=== PATIENT | male | born 1935 | race Caucasian/White ===

== ENCOUNTER → 2016-06-12 | Emergency (ER) | payer OTHER ==
[~2016-06-12] MED LIST: OXYMETAZOLINE 30 ML NASAL SPRAY EACHNARE ONE; TDAP ADULT 0.5 ML INJ (BOOSTRIX) IM ONE
[2016-06-12 11:19] VITALS: BP 143/89; PULSE 60; RESP 16; TEMP 98.4; O2SAT 95
--- NOTE | 2016-06-12 13:04 | UCPHY ---
H & P Time Seen by Provider: 06/12/16 12:52 Patient Type: New HPI/ROS: This patient presents with a chief complaint of epistaxis which began after a fall shortly before his arrival in the department he describes a mechanical fall and denies any presyncopal type symptoms. He is aware of multiple abrasions has no serious pain and no difficulty walking. The patient is on Coumadin. His last INR was the 18 of May and it was 2.5. He denies any dental injury. Although he is left upper lip is swollen. He denies any visual difficulties or any neck pain. He denies any loss of consciousness. Smoking Status: Never smoked Physical Exam: This is a well-developed well-nourished male who is no acute distress. He is alert, oriented and lucid he has a normal gait. Superficial abrasions are noted to the palmar surface of both hands. There is no underlying bony tenderness and there is full range of motion of the digits. CMS is intact. An abrasion is noted over the anterior aspect of the left knee without any significant swelling. There is full range of motion of the joint no tenderness. Examination of the face reveals swelling and an abrasion to the upper lip. The gingival surface underlying is intact as are the teeth. There is some mild swelling over the left malar area without tenderness. There is active left side epistaxis. The nose itself is nontender and nonswollen and there is no deformity. Constitutional: Initial Vital Signs Temperature (C) 36.9 C 06/12/16 11:14 Heart Rate 60 06/12/16 11:14 Respiratory Rate 16 06/12/16 11:14 Blood Pressure 143/89 H 06/12/16 11:14 O2 Sat (%) 95 06/12/16 11:14 O2 Delivery Mode Room Air Allergies/Adverse Reactions: No Known Allergies Allergy (Unverified 06/12/16 11:19) Home Medications: Medication Instructions Recorded Clopidogrel 06/12/16 Lisinopril 06/12/16 Metoprolol 06/12/16 SIMVASTATIN 06/12/16 Warfarin Sodium 06/12/16 Medical Decision Making ED Course/Re-evaluation: Afrin nasal spray was sprayed into the nose in hopes that this would control the bleeding. The bleeding did not reoccur and examination of the nose revealed no actual bleeding point. Differential Diagnosis: There is no evidence for fracture in this patient consequently x-rays were not obtained. The abrasions were cleansed and dressed as necessary. His tetanus was updated with a Tdap. He will return if the bleeding reoccurs. - Data Points Medications Given: Discontinued Medications Oxymetazoline HCl (Afrin Nasal [place]) 2 sprays EACHNARE EDNOW ONE Stop: 06/12/16 13:01 Last Admin: 06/12/16 13:05 Dose: 2 sprays Departure - Departure Disposition: Home, Routine, Self-Care Clinical Impression: Anterior epistaxis Facial trauma Qualifiers: Encounter type: initial encounter Qualified Code(s): S09.93XA - Unspecified injury of face, initial encounter Condition: Good Instructions: Nosebleed (ED), Abrasion (ED), Contusion in Adults (ED) Additional Instructions: If the nasal bleeding reoccurs you should return. Use the Afrin nasal spray in your left nostril for the bleeding does recur. Remain in an upright position as much as possible. Do not blow your nose and diffuse knees sneeze 3 year mouth. Keep the abrasions cleaned and return immediately for any suggestion of infection. If you notice spreading redness, swelling, increasing pain and tenderness or estevan pus you should return immediately since these findings frequently indicate infection. It usually takes 3 days from the time of injury for an infection to begin. Referrals: ROMARIO WAYNE [Primary Care Provider] - As per Instructions - PQRS PQRS Measurement: Not applicable
== END | disposition home or self-care (01) ==
LOC: CED 10:41
DX: R04.0 Epistaxis (principal); S09.93XA Unspecified injury of face, initial encounter; S60.511A Abrasion of right hand, initial encounter; S60.512A Abrasion of left hand, initial encounter; S80.212A Abrasion, left knee, initial encounter; W19.XXXA Unspecified fall, initial encounter; Z23 Encounter for immunization
CPT/HCPCS: 90471; 90715; G0463; 99203-PO

== ENCOUNTER 2016-06-14 10:14 | Emergency (ER) | payer OTHER ==
[2016-06-14 10:55] VITALS: BP 126/72; PULSE 63; RESP 16; TEMP 98.4; O2SAT 95
[2016-06-14] MEDS ORDERED: LIDOCAINE HCL 4% TOPICAL SOLN 50ML ONE (11:52)
[2016-06-14 12:25] LABS: % IMMATURE GRANULYOCYTES 0.4 % (0.0-1.1); ABSOLUTE IMMATURE GRANULOCYTES 0.05 10^3/uL (0.00-0.10); ADD DIFF? NO; ADD MORPH? NO; ADD SCAN? NO; ATYPICAL LYMPHOCYTE FLAG 0 (0-99); FRAGMENT RBC FLAG 0 (0-99); HEMOGLOBIN 16.5 g/dL (13.7-17.5); LEFT SHIFT FLG 0 (0-99); LIPEMIA HEMOLYSIS FLAG 90 (0-99); MEAN CELL HEMOGLOBIN 30.4 pg (27.9-34.1); MEAN CELL HEMOGLOBIN CONCENTR. 34.4 g/dL (32.4-36.7); MEAN CELL VOLUME 88.6 fL (81.5-99.8); MEAN PLATELET VOLUME 11.1 fL (8.7-11.7); PLATELET CLUMPS FLAG 20 (0-99); PLATELET COUNT 230 10^3/uL (150-400); RED BLOOD CELL COUNT 5.42 10^6/uL (4.40-6.38); RED CELL DISTRIBUTION WIDTH 13.9 % (11.5-15.2)
[2016-06-14 12:37] LABS: INR 2.85 (0.83-1.16); PROTIME(PATIENT) 29.8 SEC (12.0-15.0)
[2016-06-14 12:38] LABS: APTT 39.8 SEC (23.0-38.0)
--- NOTE | 2016-06-14 12:42 | UCPHY ---
H & P Time Seen by Provider: 06/14/16 11:19 Patient Type: Established HPI/ROS: This patient complains of left sided nose bleed that started at home more than an hour prior to arrival and persists despite his pinching the bridge of his nose. He presented here 2 days ago with a minor fall, facial abrasion nasal trauma and epistaxis to the same side treated by Dr. Whipple with resolution of his epistaxis with Afrin nasal spray at that time. This is the 1st recurrence of the bleed since that time. ROS: No right naris symptoms. He has no headache. No neck pain. No other traumatic symptoms. He denies any lightheadedness. No shortness of breath or other cardiopulmonary symptoms. 7 point ROS is otherwise negative. Past Medical/Surgical History: Atrial fib on Coumadin with most recent INR 2.9 weeks ago. Smoking Status: Never smoked Physical Exam: Physical Exam Vital signs are normal. General: No acute distress HEENT: Atraumatic except for superficial abrasion to the nose with no bony tenderness. Nose: There is mild bleeding from the anterior septum on the left side. There is also a blood clot present. Oropharynx: No blood down the posterior pharynx. Eyes: Pupils equal and react to light. Extraocular motions are intact. Lungs: No respiratory distress. Cardiac: Brisk capillary refill is intact throughout. Skin: No rash or pallor. Neuro: Alert and oriented x3 with no sensorimotor deficits. Constitutional: Initial Vital Signs Temperature (C) 36.9 C 06/14/16 10:51 Heart Rate 63 06/14/16 10:51 Respiratory Rate 16 06/14/16 10:51 Blood Pressure 126/72 H 06/14/16 10:51 O2 Sat (%) 95 06/14/16 10:51 O2 Delivery Mode Room Air Allergies/Adverse Reactions: No Known Allergies Allergy (Unverified 06/12/16 11:19) Home Medications: Medication Instructions Recorded Clopidogrel 06/12/16 Lisinopril 06/12/16 Metoprolol 06/12/16 SIMVASTATIN 06/12/16 Warfarin Sodium 06/12/16 Medical Decision Making Procedures: Anterior epistaxis: After verbal consent I had the patient blow out blood clots. I used a 50 50 mix of lidocaine and epinephrine, Angiocath 20 gauge and 10 mL syringe sprayed his left nostril with this followed by cotton ball soaked in the same. After 15 minutes are removed the cotton ball and had good hemostasis. Patient tolerated this well. There were no complications. ED Course/Re-evaluation: Patient's INR is 2.9. His CBC reveals mild leukocytosis but no anemia. I counseled patient and his daughter regarding anterior epistaxis. - Data Points Laboratory Results: Laboratory Results 06/14/16 12:20 06/14/16 06/14/16 12:20 12:20 WBC 12.73 10^3/uL H 10^3/uL (3.80-9.50) RBC 5.42 10^6/uL 10^6/uL (4.40-6.38) Hgb 16.5 g/dL g/dL (13.7-17.5) Hct 48.0 % % (40.0-51.0) MCV 88.6 fL fL (81.5-99.8) MCH 30.4 pg pg (27.9-34.1) MCHC 34.4 g/dL g/dL (32.4-36.7) RDW 13.9 % % (11.5-15.2) Plt Count 230 10^3/uL 10^3/uL (150-400) MPV 11.1 fL fL (8.7-11.7) Neut % (Auto) 81.0 % H % (39.3-74.2) Lymph % (Auto) 11.7 % L % (15.0-45.0) [place] % (Auto) 6.1 % % (4.5-13.0) Eos % (Auto) 0.5 % L % (0.6-7.6) Baso % (Auto) 0.3 % % (0.3-1.7) Nucleat RBC Rel Count 0.0 % % (0.0-0.2) Absolute Neuts (auto) 10.31 10^3/uL H 10^3/uL (1.70-6.50) Absolute Lymphs (auto) 1.49 10^3/uL 10^3/uL (1.00-3.00) Absolute Monos (auto) 0.78 10^3/uL 10^3/uL (0.30-0.80) Absolute Eos (auto) 0.06 10^3/uL 10^3/uL (0.03-0.40) Absolute Basos (auto) 0.04 10^3/uL 10^3/uL (0.02-0.10) Absolute Nucleated RBC 0.00 10^3/uL 10^3/uL (0-0.01) Immature Gran % 0.4 % % (0.0-1.1) Immature Gran # 0.05 10^3/uL 10^3/uL (0.00-0.10) PT 29.8 SEC H SEC (12.0-15.0) INR 2.85 H (0.83-1.16) APTT 39.8 SEC H SEC (23.0-38.0) Departure - Departure Disposition: Home, Routine, Self-Care Clinical Impression: Anterior epistaxis Condition: Good Instructions: Nosebleed (ED) Additional Instructions: Diagnosis: Anterior epistaxis left side resolved Plan: Humidifier Avoid blowing or picking her nose for the next few days If he have recurrent nosebleed, pain to the upper nasal bridge in lean forward and tried Afrin nasal spray Return for any nosebleed the last for more than 20 minutes or go to the emergency department Referrals: ROMARIO WAYNE [Primary Care Provider] - As per Instructions - PQRS PQRS Measurement: 134: Depression screening and followup, PRIME MD-PHQ2 (12 years and older) Over the last 2 weeks, how often have you been bothered by any of the following problems? 1. Feeling down, depressed, or hopeless? 2. Little interest or pleasure in doing things? Patient answered no to both 1 and 2 130: Documentation of medications. Reviewed all patient medications, doses, route and frequency. 226: Do you smoke? [No.] 47: 65 and older: Advanced care planning. Patient designates surrogate decision maker as daughter 51: 18 years old and older with diagnosis of COPD, spirometry performance. NA 52: 18 years old and older with COPD and symptoms of COPD or FEV1<60% predicted prescribed a B Agonist. NA
== END 2016-06-14 12:45 | disposition home or self-care (01) ==
LOC: CED 10:14
DX: R04.0 Epistaxis (principal); I48.91 Unspecified atrial fibrillation; Z79.01 Long term (current) use of anticoagulants
CPT/HCPCS: 30901-PO; 85025-PO; 85610-PO; 85730-PO; 99214-PO; G0463-PO

== ENCOUNTER → 2018-02-10 | Outpatient (CLI) | payer OTHER | LOC: BHFA 10:30 | PROVIDERS: ATTEND Internal Medicine Cardiovascular Disease | DX: R42 Dizziness and giddiness (principal) ==